=== PATIENT | male | born 1975 | race Caucasian/White ===

== ENCOUNTER → 2018-06-05 | Outpatient (CLI) | payer BC | LOC: GMAM 16:38 | PROVIDERS: ATTEND Family Medicine | DX: R10.84 Generalized abdominal pain (principal); N41.0 Acute prostatitis ==

== ENCOUNTER → 2018-06-06 | Outpatient (CLI) | payer BC ==
--- NOTE | 2018-06-06 16:00 | US ---
EXAM DESCRIPTION: Ultrasound right upper quadrant limited CLINICAL HISTORY: GENERALIZED ABD PN COMPARISON: None Available. TECHNIQUE: Right upper quadrant ultrasound FINDINGS: Pancreas: Visualized portions of the pancreas are unremarkable. Bowel gas obscures some areas. Aorta/inferior vena cava: No aortic aneurysm. Normal inferior vena cava. Liver: The liver is homogeneous in texture with normal echogenicity of the hepatic parenchyma. No focal liver lesion or intrahepatic bile duct dilatation. No liver surface irregularity. Normal appearance of the portal vein and hepatic veins. Gallbladder: Gallbladder appears normal with no intraluminal stones or wall thickening. Common bile duct: Normal caliber measuring 4.5 mm. Right kidney: Renal length is 10.7 cm. Normal cortical echogenicity. Cortical thickness is normal. No hydronephrosis is seen. No renal mass or shadowing calculus. IMPRESSION: No diagnostic abnormality is identified on sonographic examination of the right upper quadrant. Electronically signed by: Tyrel Lovelace MD 06/06/2018 3:59 PM CDT
== END ==
LOC: US 09:12
PROVIDERS: ATTEND Family Medicine
DX: R10.84 Generalized abdominal pain (principal)

== ENCOUNTER → 2019-06-30 | Outpatient (CLI) | payer BC ==
--- NOTE | 2019-06-30 11:24 | US ---
EXAM DESCRIPTION: Gall Bladder: ULTRASOUND. CLINICAL HISTORY: GENERALIZED ABDOMINAL PAIN LOOKING FOR POSSIBLE CHOLECYSTITIS COMPARISON: None. TECHNIQUE: Transabdominal scanning: [place]-scale and Doppler modes. FINDINGS: Gallbladder: normal size, shape, echogenicity; no intraluminal stones or sludge. No fluid around the gallbladder. No wall thickening. 1.5 mm. Non-tender with transducer pressure. Common bile duct: caliber 3.4 mm within normal limits. Liver: normal echogenicity; contour liver capsule smooth where seen. No fluid around the liver. Intrahepatic biliary ducts normal caliber. Doppler hepatopedal flow portal vein.. Long axis right lobe 15.9 cm. Pancreas: normal size and echogenicity. Duct not seen. Aorta: 2.2 cm proximal diameter is normal. Right kidney: 10.5 cm long axis. Normal cortical echogenicity and wall thickness. No echogenic stones or hydronephrosis.. IMPRESSION: 1. Normal ultrasound of the right upper quadrant of the abdomen. Gallbladder negative. Normal caliber of the ducts and proximal abdominal aorta. No ascites. Nontender with transducer pressure. 2. The stomach, spleen, and left kidney were not imaged on this study. Electronically signed by: Rob Figueroa MD 06/30/2019 11:22 AM CLERICAL SUPERVISOR
== END ==
LOC: US 10:36
PROVIDERS: ATTEND Physician Assistant
DX: R10.84 Generalized abdominal pain (principal); Z12.5 Encounter for screening for malignant neoplasm of prostate